=== PATIENT | female | born 1990 | race Caucasian/White ===

== ENCOUNTER → 2022-08-02 | Emergency (ER) | payer MEDICAID ==
[~2022-08-02] VITALS: Ht 172.7 cm; Wt 45.4 kg
[~2022-08-02] MED LIST: NALTREXONE HCL50 MG PO; NEURONTIN300 MG PO
--- OUTSIDE RECORDS SUMMARY | 2022-08-02 21:07 | XMS ---
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 Perla VISIT COUNT (12 MO.) [facility] TOTAL 4 NOTE: Visits indicate total known visits. ED/UCC VISIT TRACKING (12 MO.) 08/02/2022 16:09 KIMBERLY Odom TYPE: Emergency COMPLAINT: - WITHDRAWLS 07/15/2022 12:04 [facility] TYPE: Emergency COMPLAINT: - EMS Alcohol Withdrawl DIAGNOSES: - Alcohol Problem - EMS Alcohol Withdrawl - Hypoglycemia, unspecified - Alcohol use, unspecified with intoxication, uncomplicated 04/12/2022 21:48 [facility] TYPE: Emergency COMPLAINT: - usp clearance DIAGNOSES: - usp clearance - Law Enforcement Clearance - Encounter for other general examination 02/15/2022 13:07 [facility] TYPE: Emergency COMPLAINT: - Chest Pain DIAGNOSES: - Other chest pain - Eating Disorder - Chest Pain INPATIENT VISIT TRACKING (12 MO.) No inpatient visits to display in this time frame [email or web address]
== END ==
LOC: ED 16:08
DX: F10.129 Alcohol abuse with intoxication, unspecified (principal); Z91.040 Latex allergy status; Z88.8 Allergy status to other drugs, medicaments and biological substances; Z79.899 Other long term (current) drug therapy
CPT/HCPCS: 36415; 80053; 83735; 84703; 85025; 96365; 96366; 99284-25; G0480; J3411; J7030

== ENCOUNTER 2022-08-26 12:43 | Emergency (ER) | payer MEDICAID ==
[~2022-08-26] VITALS: Ht 172.7 cm; Wt 49.0 kg
--- OUTSIDE RECORDS SUMMARY | 2022-08-26 12:46 | XMS ---
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 Perla VISIT COUNT (12 MO.) [address] [place] [address] TOTAL 5 NOTE: Visits indicate total known visits. ED/UCC VISIT TRACKING (12 MO.) 08/26/2022 12:43 [facility] [place] TYPE: Emergency COMPLAINT: - INTOXICATION 08/02/2022 16:09 [facility] [place] [place] TYPE: Emergency COMPLAINT: - WITHDRAWLS DIAGNOSES: - Alcohol abuse with intoxication, unspecified - Other skilled nursing (current) drug therapy - Latex allergy status - Allergy status to other drugs, medicaments and biological substances 07/15/2022 12:04 [facility] TYPE: Emergency COMPLAINT: - EMS Alcohol Withdrawl DIAGNOSES: - EMS Alcohol Withdrawl - Hypoglycemia, unspecified - Alcohol use, unspecified with intoxication, uncomplicated - Alcohol Problem 04/12/2022 21:48 [facility] TYPE: Emergency COMPLAINT: - prison clearance DIAGNOSES: - Law Enforcement Clearance - Encounter for other general examination - prison clearance 02/15/2022 13:07 [facility] TYPE: Emergency COMPLAINT: - Chest Pain DIAGNOSES: - Eating Disorder - Chest Pain - Other chest pain INPATIENT VISIT TRACKING (12 MO.) No inpatient visits to display in this time frame [email or web address]
== END 2022-08-26 17:18 | disposition home or self-care (01) ==
LOC: ED 12:43
DX: F10.129 Alcohol abuse with intoxication, unspecified (principal); Y90.8 Blood alcohol level of 240 mg/100 ml or more; E11.9 Type 2 diabetes mellitus without complications; Z91.040 Latex allergy status; Z88.8 Allergy status to other drugs, medicaments and biological substances
CPT/HCPCS: 36415; 80053; 84702; 85025; 99284; G0480; J7030

== ENCOUNTER 2022-09-09 15:02 | Emergency (ER) | payer MEDICAID ==
[~2022-09-09] VITALS: Ht 172.7 cm; Wt 49.0 kg
--- OUTSIDE RECORDS SUMMARY | 2022-09-09 15:04 | XMS ---
PreManage Notification: MATT RIZZO Security Hire Car Driver Events No recent Security Events currently on file CRITERIA MET - [facility] - 2 Visits in 30 Days - [facility] - 6 ED Visits in 6 Months CARE PROVIDERS VÍCTOR MIMS Counselor: Professional Current PHONE: Unknown [facility] [place] Current PHONE: Unknown Kalia has no Care Guidelines for this patient. Perla VISIT COUNT (12 MO.) [address] [place] [address] TOTAL 7 NOTE: Visits indicate total known visits. ED/UCC VISIT TRACKING (12 MO.) 09/09/2022 15:03 KIMBERLY Odom TYPE: Emergency COMPLAINT: - INTOXICATION 09/09/2022 01:13 [facility] VANIA Auguste TYPE: Emergency COMPLAINT: - Kwesi Mohan DIAGNOSES: - Kwesi Mohan - Law Enforcement Clearance - Encounter for other general examination 08/26/2022 12:[address] [facility] [place] TYPE: Emergency COMPLAINT: - INTOXICATION 08/02/2022 16:[address] [facility] [place] TYPE: Emergency COMPLAINT: - WITHDRAWLS DIAGNOSES: - Latex allergy status - Allergy status to other drugs, medicaments and biological substances - Alcohol abuse with intoxication, unspecified - Other vermin exterminator (current) drug therapy 07/15/2022 12:04 [facility]O [facility] TYPE: Emergency COMPLAINT: - EMS Alcohol Withdrawl DIAGNOSES: - Alcohol use, unspecified with intoxication, uncomplicated - Alcohol Problem - EMS Alcohol Withdrawl - Hypoglycemia, unspecified 04/12/2022 21:48 [facility] TYPE: Emergency COMPLAINT: - fci clearance DIAGNOSES: - fci clearance - Law Enforcement Clearance - Encounter for other general examination 02/15/2022 13:07 [facility]O M[facility] TYPE: Emergency COMPLAINT: - Chest Pain DIAGNOSES: - Other chest pain - Eating Disorder - Chest Pain INPATIENT VISIT TRACKING (12 MO.) No inpatient visits to display in this time frame [id number]
--- NOTE | 2022-09-10 20:36 | EKG ---
[facility] [address] [facility] [place] [address] Signed Normal sinus rhythm Right atrial enlargement Prolonged QT Abnormal ECG No previous ECGs available Confirmed by BRIAN COURTNEY MD ([id number]) on 09/10/2022 8:36:15 PM Electronically Signed By: BRIAN COURTNEY MD 09/10/222035 PATIENT NAME: MATT RIZZO Electrocardiogram DATE OF : 86 PHYSICIAN: BRIAN COURTNEY MD REPORT #: [id number] REPORT IS CONFIDENTIAL AND NOT TO BE RELEASED WITHOUT AUTHORIZATION
== END 2022-09-10 05:40 | disposition home or self-care (01) ==
LOC: ED 15:02
DX: F10.129 Alcohol abuse with intoxication, unspecified (principal); E11.9 Type 2 diabetes mellitus without complications; Z88.8 Allergy status to other drugs, medicaments and biological substances; Z91.040 Latex allergy status
CPT/HCPCS: 36415; 51701; 80053; 81001; 84443; 85025; 93005; 93010; 99284-25; A9270; G0480; J7030